=== PATIENT | male | born 1965 | race Caucasian/White ===

== ENCOUNTER 2022-03-10 08:01 | Outpatient (CLI) | payer BC, SELFPAY ==
--- NOTE | ~2022-03-10 | CT_ITS ---
EXAMINATION:CT lung screening DATE: 03/10/2022 08:21 INDICATION: Personal history of tobacco use. Smoker who quit 13 years ago with 30 pack year history. TECHNIQUE: Computed tomography (CT) of the chest was performed without intravenous contrast. Automate d exposure control and iterative reconstruction technique were employed. The dose-length product (DLP ) was 169.65 mGy-cm. COMPARISON: None. FINDINGS: A calcified right lung nodule and calcified right hilar and mediastinal lymph nodes are con sistent with old granulomatous disease. No pleural effusion. The heart size is normal. There are megan nary artery calcifications. No pericardial effusion. There is diffuse hepatic steatosis. Calcificatio ns in the liver and spleen are consistent with old granulomatous disease. There are bridging endplate osteophytes at multiple levels in the spine, consistent with diffuse idiopathic skeletal hyperostosi s (DISH). IMPRESSION: 1. Lung-RADS category 1: Negative. Continue annual screening with noncontrast low-dose chest CT in 12 months. Reviewed, dictated and finalized at location A. O VISUAL PROJECT MANAGER IMPRESSION: 1. Lung-RADS category 1: Negative. Continue annual screening with noncontrast l ow-dose chest CT in 12 months.
== END 2022-03-10 08:02 | disposition home or self-care (01) ==
PROVIDERS: PCP Family Medicine; Visit Provider Physician Assistant
DX: Z12.2 Encounter for screening for malignant neoplasm of respiratory organs (principal); Z87.891 Personal history of nicotine dependence
CPT/HCPCS: 71271

== ENCOUNTER 2022-03-12 02:36 | Day surgery (SDC) | payer BC, SELFPAY ==
[2022-02-25 11:06] VITALS: BMI 31.6
[2022-03-12 08:33] VITALS: BP 123/87; PULSE 79; RESP 18; TEMP 36.4; O2SAT 99
[2022-03-12] MEDS: LACTATED RINGERS 1,000 ML 150 ML IV CONT (08:38)
--- NOTE | 2022-03-12 08:49 | WPDANESEPPF ---
Anes - Initial Pre Proc Eval Procedure: Operation Date: 03/12/22 10:00 Proposed Procedures p Screening Colonoscopy - Rafa Anne MD Date/Time: 03/12/22 08:49 Surgeon: Rafa Anne MD Pre Op Diagnosis: neoplasm screening Patient Data Age: 56 Gender: M Height: 1.78 m Weight: 96.1 kg Last Vital Signs Temp 97.5 F L 03/12/22 08:33 Pulse 79 03/12/22 08:33 Resp 18 03/12/22 08:33 BP 123/87 03/12/22 08:33 Pulse Ox 99 03/12/22 08:33 O2 Del Method Room Air 03/12/22 08:33 Allergies Allergy/AdvReac Type Severity Reaction Status Date / Time No Known Allergies Allergy Verified 03/12/22 08:31 Home Medications Medication Instructions Recorded Confirmed Type albuterol sulfate 90 mcg/actuation 1 puff inhalation DAILY PRN 01/26/19 03/12/22 History aerosol inhaler Wheezing fluticasone propionate 50 1 spray intranasal DAILY 01/26/19 03/12/22 History mcg/actuation nasal spray,suspension (Flonase Allergy Relief) ketoconazole 2 % topical cream 1 applic topical .twice a week #60 03/15/19 03/12/22 Rx grams sildenafil 100 mg tablet 100 mg PO DAILY #30 tabs 03/15/19 03/12/22 Rx allopurinol 300 mg tablet 300 mg PO DAILY 03/03/22 03/12/22 History Patient hx anesthesia problems: none Family hx anesthesia problems: none Results Review: All pre-operative results and documents have been reviewed as part of the pre-operative evaluation. [facility] Past Medical History Medical History Chronic insomnia Erectile dysfunction Exertional asthma History of nasal polyp Impotence Mixed hyperlipidemia Seborrhea capitis in adult Surgical History Surgical History H/O rhinoplasty Social History Social History Smoking packs per day: 2 Smoking cigarettes per day: 40.0 Years smoked: 25 Smoking pack-years: 50.00 Smoking status: Former smoker Tobacco type: cigarettes Second hand tobacco smoke exposure: No Smoking end date: 03/08/09 Alcohol intake: never Substance use: never Substance use type: does not use Living arrangements: with family Gender identity (if verbalized by the patient): Male Anes - Eval Final PreProcedure Day of Procedure 03/12/22 08:49 Patient weight: normal Heart: regular rate and rhythm Lungs: clear to auscultation Airway: Mallampati scale class II Neurological: alert and oriented Last oral intake: >/= 8 hours ASA classification: II Emergent: no Anesthetic plan: proceed Anesthesia type and monitoring: general GIVS and standard monitoring Results Review: All pre-operative results and documents have been reviewed as part of the pre-operative evaluation. Informed Consent: The patient's anesthetic plan and its attendant risks and benefits were discussed with the patient/family/POA. Questions were solicited and answers provided to the satisfaction of the patient/family/POA.
--- NOTE | 2022-03-12 09:20 | PM.HPGS ---
History of Present Illness History of Present Illness Consent: Risks, benefits, and alternatives have been discussed and questions answered. Patient agrees to proceed with procedure. Chief complaint: neoplasm screening Narrative: Jhonatan Morales is a 56 year old male Presents for screening colonoscopy. Patient's current weight appetite and bowel movements are normal. He denies abdominal pain. He has had no bleeding. Patient reports previous colonoscopy 10 years ago with diminutive polyp. This was performed elsewhere. Patient states his family history is noncontributory with no known family history of colon or rectal disease. Review of Systems Review of Systems: Review of systems noncontributory. [facility] Past Medical History Medical History Chronic insomnia Erectile dysfunction Exertional asthma History of nasal polyp Impotence Mixed hyperlipidemia Seborrhea capitis in adult Surgical History Surgical History H/O rhinoplasty Social History Social History Smoking packs per day: 2 Smoking cigarettes per day: 40.0 Years smoked: 25 Smoking pack-years: 50.00 Smoking status: Former smoker Tobacco type: cigarettes Second hand tobacco smoke exposure: No Smoking end date: 03/08/09 Alcohol intake: never Substance use: never Substance use type: does not use Living arrangements: with family Gender identity (if verbalized by the patient): Male Meds Home Medications and Allergies Home Medications Medication Instructions Recorded Confirmed Type albuterol sulfate 90 mcg/actuation 1 puff inhalation DAILY PRN 01/26/19 03/12/22 History aerosol inhaler Wheezing fluticasone propionate 50 1 spray intranasal DAILY 01/26/19 03/12/22 History mcg/actuation nasal spray,suspension (Flonase Allergy Relief) ketoconazole 2 % topical cream 1 applic topical .twice a week #60 03/15/19 03/12/22 Rx grams sildenafil 100 mg tablet 100 mg PO DAILY #30 tabs 03/15/19 03/12/22 Rx allopurinol 300 mg tablet 300 mg PO DAILY 03/03/22 03/12/22 History Allergies Allergy/AdvReac Type Severity Reaction Status Date / Time No Known Allergies Allergy Verified 03/12/22 08:31 Vital Signs Vital Signs - 24 hr 03/12/22 08:33 Temperature 97.5 F L Pulse Rate 79 Respiratory Rate 18 Blood Pressure 123/87 Pulse Oximetry 99 Oxygen Delivery Room Air Exam Narrative: Physical exam reveals patient to be alert. Vital signs stable. HEENT exam is unremarkable. Patient is anicteric. Lungs are clear to auscultation and percussion. Heart is without murmur or extra sounds. Abdomen bowel sounds present soft nontender with no organomegaly. Digital external rectal exam is normal. Assessment and Plan Assessment and plan (1) Encounter for screening colonoscopy: Code(s): Z12.11 - Encounter for screening for malignant neoplasm of colon Status: Acute Assessment and Plan: Patient presents for screening colonoscopy. further recommendations may be given after endoscopy.
[2022-03-12] MEDS: SIMETHICONE ORAL SUSPENSION 20 MG/0.3 ML 30 ML BOTTLE 0.6 ML IRRIGATION (10:10)
[2022-03-12 10:21] VITALS: BP 131/94; PULSE 89; RESP 22; O2SAT 95
[2022-03-12 10:31] VITALS: BP 137/92; PULSE 83; RESP 18; O2SAT 97
[2022-03-12 10:38] VITALS: BP 138/98; PULSE 77; RESP 20; O2SAT 97
== END 2022-03-12 10:48 | disposition home or self-care (01) ==
PROVIDERS: PCP Family Medicine; Visit Provider Internal Medicine Gastroenterology
PROC: 0DJD8ZZ Inspection of Lower Intestinal Tract, Via Natural or Artificial Opening Endoscopic (ICD-10-PCS; CPT 45378; principal; 2022-03-12 10:00)
DX: Z12.11 Encounter for screening for malignant neoplasm of colon (principal); K64.8 Other hemorrhoids; E78.2 Mixed hyperlipidemia; J45.909 Unspecified asthma, uncomplicated; Z87.891 Personal history of nicotine dependence; Z79.51 Long term (current) use of inhaled steroids
CPT/HCPCS: 45378; J7120

== ENCOUNTER 2022-07-06 11:16 | Outpatient (CLI) | payer BC, SELFPAY ==
--- NOTE | ~2022-07-06 | US_ITS ---
EXAMINATION: US thyroid DATE: 07/06/2022 11:58 INDICATION: Nontoxic single thyroid nodule TECHNIQUE: Multiple ultrasound images of the thyroid were obtained. COMPARISON: CT lung screening 03/10/2022. FINDINGS: The right thyroid lobe measures 4.5 x 1.8 x 1.9 cm. The left thyroid lobe measures 4.2 x 1.8 x 2.0 c m. The isthmus measures 0.4 cm. There is heterogeneous echotexture throughout the thyroid gland. No d iscrete nodules identified, noting that heterogeneous echogenicity may reduce sensitivity of detectio n of thyroid nodules. Normal vascular flow is present. IMPRESSION: Heterogeneous thyroid gland as can be seen with Isaura thyroiditis and Graves' disease. No discret e nodule detected. Reviewed, dictated and finalized at location K. IMPRESSION: Heterogeneous thyroid gland as can be seen with Isaura thyroiditis and Grave s' disease. No discrete nodule detected.
== END 2022-07-06 11:17 | disposition home or self-care (01) ==
PROVIDERS: PCP Family Medicine; Visit Provider Physician Assistant
DX: E04.1 Nontoxic single thyroid nodule (principal)
CPT/HCPCS: 76536

== ENCOUNTER 2023-03-12 14:59 | Outpatient (CLI) | payer BC, SELFPAY ==
--- NOTE | ~2023-03-12 | CT_ITS ---
EXAMINATION:CT lung screening DATE: 03/12/2023 15:16 INDICATION: Nicotine dependence, cigarettes, uncomplicated. Smoker who quit 14 years ago with 30 pack year history. TECHNIQUE: Computed tomography (CT) of the chest was performed without intravenous contrast. Automate d exposure control and iterative reconstruction technique were employed. The dose-length product (DLP ) was 221.23 mGy-cm. COMPARISON: Chest CT 03/10/2022 FINDINGS: A calcified right lung nodule and calcified right hilar and mediastinal lymph nodes are con sistent with old granulomatous disease. No pleural effusion. The heart size is normal. There are megan nary artery calcifications. No pericardial effusion. There is diffuse hepatic steatosis. There are br idging endplate osteophytes at multiple levels in the spine, consistent with diffuse idiopathic skele anabel hyperostosis (DISH). IMPRESSION: 1. Lung-RADS category 1: Negative. Continue annual screening with noncontrast low-dose chest CT in 12 months. Reviewed, dictated and finalized at location E. RIALS MANAGEMENT MANAGER IMPRESSION: 1. Lung-RADS category 1: Negative. Continue annual screening with noncontrast l ow-dose chest CT in 12 months.
== END 2023-03-12 15:00 | disposition home or self-care (01) ==
PROVIDERS: PCP Family Medicine; Visit Provider Physician Assistant
DX: Z12.2 Encounter for screening for malignant neoplasm of respiratory organs (principal); F17.210 Nicotine dependence, cigarettes, uncomplicated
CPT/HCPCS: 71271

== ENCOUNTER → 2023-04-05 13:43 | Outpatient (CLI) | payer BC, SELFPAY ==
--- NOTE | ~2023-04-05 | CT_ITS ---
Non-contrast Head CT History: Disorientation Technique: Axial non-contrast imaging of the brain was performed. Dose reduction technique was used on this scan by utilizing automated exposure control and iterative reconstruction technique. The dose -length product (DLP) was 674.51 mGy-cm. Findings: There is an 8 mm hyperdense structure in the right parietal lobe (axial image 38). The vent ricles and subarachnoid spaces are normal in size. The calvarium appears normal. The visualized par anasal sinuses and mastoid air cells are clear. Impression: 8 mm hyperdense structure right parietal lobe. Cavernoma is a consideration versus possibly a focal s ubacute hemorrhage, or other mass. Pre and postcontrast MRI of the brain recommended to further asses s. Reviewed, dictated and finalized at location . ONAL TAX PREPARER Impression: 8 mm hyperdense structure right parietal lobe. Cavernoma is a consideration courtney joon possibly a focal subacute hemorrhage, or other mass. Pre and postcontrast M RI of the brain recommended to further assess.
== END ==
PROVIDERS: PCP Physician Assistant; Visit Provider Physician Assistant
DX: G45.9 Transient cerebral ischemic attack, unspecified (principal); R41.0 Disorientation, unspecified; R51.9 Headache, unspecified
CPT/HCPCS: 70450

== ENCOUNTER → 2023-04-16 09:18 | Outpatient (CLI) | payer BC, SELFPAY ==
--- NOTE | ~2023-04-16 | MR_ITS ---
MRI of the brain Clinical History: Confusion, headache Technique: Axial and sagittal T1-weighted images were acquired. These were followed by axial T2-weigh iam, diffusion weighted, gradient, and FLAIR images. Following intravenous administration of 20 cc Mu ltiHance gadolinium, T1-weighted fat-sat imaging was performed in the axial and coronal planes. Findings: No abnormal signal seen in the brain parenchyma. No acute infarct, intracranial hemorrhage, or mass lesion. Ventricles and some arachnoid spaces are unremarkable. Orbits are unremarkable. There is bilateral ma xillary and ethmoid sinus disease. Remaining paranasal sinuses and mastoid air cells are clear. Major intracranial flow voids are intact. Sagittal midline structures are intact. No abnormal postcontrast enhancement identified. IMPRESSION: No intracranial abnormality. Sinus disease, as above. Reviewed, dictated and finalized at [facility]. RT HOUSEKEEPER
== END ==
PROVIDERS: PCP Physician Assistant; Visit Provider Physician Assistant
DX: R93.0 Abnormal findings on diagnostic imaging of skull and head, not elsewhere classified (principal)
CPT/HCPCS: 70553; A9577

== ENCOUNTER 2023-05-04 14:43 | Outpatient (CLI) | payer BC, SELFPAY ==
--- NOTE | ~2023-05-04 | US_ITS ---
EXAMINATION: US carotid duplex BI DATE: 05/04/2023 15:24 INDICATION: Transient cerebral ischemic attack, unspecified. TECHNIQUE: Grayscale, color Doppler, and pulsed Doppler images of the cervical carotid arteries were obtained. The degree of vessel stenosis is placed in one of the following categories: normal, <50%, 5 0-69%, >=70% but less than near-occlusion, near-occlusion, or total occlusion. Note that percent sten osis relative to normal distal artery lumen diameter is indirectly measured from velocity measurement s as described by Camilo, et al. Radiology 2003; 229:340-346. COMPARISON: None. FINDINGS: RIGHT: The right common carotid artery (CCA) peak systolic velocity (PSV) is 117 cm/s. The right internal ca rotid artery (ICA) PSV is 74 cm/s. The right ICA end-diastolic velocity (EDV) is 33 cm/s. The right I CA/CCA PSV ratio is 0.6. Grayscale and color Doppler images yield an estimate of <50% diameter reduct ion from plaque in the ICA. There is antegrade flow in the right vertebral artery. LEFT: The left CCA PSV is 139 cm/s. The left ICA PSV is 72 cm/s. The left ICA EDV is 34 cm/s. The left ICA/ CCA PSV ratio is 0.5. Grayscale and color Doppler images yield an estimate of <50% diameter reduction from plaque in the ICA. There is antegrade flow in the left vertebral artery. IMPRESSION: 1. <50% stenosis in the right internal carotid artery. 2. <50% stenosis in the left internal carotid artery. Reviewed, dictated and finalized at location A. ICAL SCIENCE PROFESSOR
--- NOTE | 2023-05-04 15:10 | ECHO_ITS ---
Patient Info Name: Jhonatan Morales Age: 57 years : 1965 Gender: Male Ht: 70 in Wt: 220 lbs BSA: 2.25 m2 HR: 76 bpm BP: 147 / 99 mmHg Heart Rhythm: Sinus Rhythm Technical Quality: Good Exam Date: 05/04/2023 3:18 PM Exam Location: Echo Lab Patient Status: Outpatient Admit Date: 05/04/2023 Staff Ordering Physician: Virginia Block PA-C Anesthesiology Fellow: Katelin Madsen RDCS Attending Provider: Virginia Block PA-C Referring Physician: Mckayla AGARWAL; Exam Type: CA echo doppler color flow Study Info Indications G45.9 - Transient cerebral ischemic attack, unspecified Complete two-dimensional, color flow and Doppler transthoracic echocardiogram is performed. Summary 1. Complete two-dimensional, color flow and Doppler transthoracic echocardiogram is performed. 2. Left ventricular chamber dimension is normal. 3. Left ventricular systolic function is normal, estimated at 60-65%. 4. There is mild concentric increased left ventricular wall thickness. 5. The left ventricular diastolic function is abnormal. 6. E/e' 12 is mildly elevated. 7. There is mild aortic valve sclerosis. 8. There is trace mitral valve regurgitation. 9. No pulmonary hypertension, estimated pulmonary arterial systolic pressure is 28 mmHg. Left Ventricle E/e' 12 is mildly elevated. Left ventricular chamber dimension is normal. Left ventricular systolic function is normal, estimated at 60-65%. There is mild concentric increased left ventricular wall thickness. The left ventricular diastolic function is abnormal. Right Ventricle Right ventricular systolic function is normal and with normal TAPSE 2.1 cm. Right ventricular chamber dimension is normal. Left Atria Left atrial chamber dimension is normal. Right Atria Right atrial chamber dimension is normal. Aortic Valve The aortic valve is trileaflet. There is mild aortic valve sclerosis. There is no aortic valve stenosis. There is no aortic valve regurgitation. Pulmonic Valve There is no pulmonic regurgitation. Mitral Valve There is no mitral valve stenosis. There is trace mitral valve regurgitation. Tricuspid Valve There is no tricuspid valve regurgitation. No pulmonary hypertension, estimated pulmonary arterial systolic pressure is 28 mmHg. Pericardium/Pleural There is no pericardial effusion. Inferior Vena Cava Normal inferior vena cava with >50% collapse upon inspiration consistent with normal right atrial pressure, 5 mmHg. Aorta The aortic root size at the sinus of Valsalva is normal. Left Ventricular Outflow Tract Name Value Normal LVOT 2D LVOT Diameter 2.0 cm LVOT Doppler LVOT Peak Gradient 4 mmHg LVOT Mean Gradient 2 mmHg LVOT VTI 18 cm LVOT VTI/AV VTI Ratio 0.7 LVOT Stroke Volume 58 ml LVOT CO 3.9 l/min LVOT CI 1.7 l/min/m2 Pulmonic Valve Name Value Normal
== END 2023-05-04 14:44 | disposition home or self-care (01) ==
PROVIDERS: PCP Family Medicine; Visit Provider Physician Assistant
DX: R93.1 Abnormal findings on diagnostic imaging of heart and coronary circulation (principal); I35.8 Other nonrheumatic aortic valve disorders; I34.0 Nonrheumatic mitral (valve) insufficiency; G45.9 Transient cerebral ischemic attack, unspecified
CPT/HCPCS: 93306; 93880

== ENCOUNTER 2024-02-22 08:51 | Outpatient (CLI) | payer BC, SELFPAY ==
--- NOTE | 2024-02-22 11:00 | NEURO_ITS ---
Impression: # Complains of numbness of feet. ? # Mild asymmetrical axonal neuropathy. ? # Normal needle/EMG exam. ? # Clinical correlation recommended. Nerve Conduction Studies Anti Sensory Summary Table ?Stim Site NR Peak (ms) P-T Amp (?V) Site1 Site2 Delta-P (ms) Dist (cm) David (m/s) Left Sup Fibular Anti Sensory (Ant Lat Mall) 14 cm ? 3.9 5.1 14 cm Ant Lat Mall 3.9 16.0 41 Right Sup Fibular Anti Sensory (Ant Lat Mall) 14 cm ? 3.7 8.6 14 cm Ant Lat Mall 3.7 16.0 43 Left Sural Anti Sensory (Lat Mall) Calf ? 3.6 10.6 Calf Lat Mall 3.6 16.0 44 Right Sural Anti Sensory (Lat Mall) Calf ? 3.6 11.5 Calf Lat Mall 3.6 16.0 44 Motor Summary Table ?Stim Site NR Onset (ms) O-P Amp (mV) Site1 Site2 Delta-0 (ms) Dist (cm) David (m/s) Left Peroneal Motor (Vastus Med) Ankle ? 4.0 4.1 Popit Ankle 9.0 38.0 42 Popit ? 13.0 3.1 Right Peroneal Motor (Vastus Med) Ankle ? 3.8 4.1 Popit Ankle 8.7 40.0 46 Popit ? 12.5 2.1 Left Tibial Motor (Abd Montaño Brev) Ankle ? 3.8 7.7 Knee Ankle 9.4 41.0 44 Knee ? 13.2 4.8 Right Tibial Motor (Abd Montaño Brev) Ankle ? 4.1 3.9 Knee Ankle 8.7 41.0 47 Knee ? 12.8 2.9 F Wave Studies ?NR F-Lat (ms) L-R F-Lat (ms) Left Peroneal (Mrkrs) (EDB) ? 56.51 0.17 Right Peroneal (Mrkrs) (EDB) ? 56.35 0.17 Left Tibial (Mrkrs) (Abd Hallucis) ? 58.17 0.43 Right Tibial (Mrkrs) (Abd Hallucis) ? 57.74 0.43 EMG ?Side Muscle Nerve Root Ins Act Fibs Amp Dur Recrt Comment Right AntTibialis Dp Br Fibular L4-5 Nml Nml Nml Nml Nml Right Gastroc Tibial S1-2 Nml Nml Nml Nml Nml Right Fibularis Long Sup Br Fibular L5-S1 Nml Nml Nml Nml Nml Right Flex Dig Long Tibial L5-S2 Nml Nml Nml Nml Nml Right Ext Dig Brev Dp Br Fibular L5, S1 Nml Nml Nml Nml Nml Right QuadratusFem QuadFemoris L4-5, S1 Nml Nml Nml Nml Nml Left AntTibialis Dp Br Fibular L4-5 Nml Nml Nml Nml Nml Left Gastroc Tibial S1-2 Nml Nml Nml Nml Nml Left Fibularis Long Sup Br Fibular L5-S1 Nml Nml Nml Nml Nml Left Flex Dig Long Tibial L5-S2 Nml Nml Nml Nml Nml Left Ext Dig Brev Dp Br Fibular L5, S1 Nml Nml Nml Nml Nml Left QuadratusFem QuadFemoris L4-5, S1 Nml Nml Nml Nml Nml MTDD
== END 2024-02-22 08:52 | disposition home or self-care (01) ==
PROVIDERS: PCP Family Medicine; Visit Provider Family Medicine
DX: G62.89 Other specified polyneuropathies (principal)
CPT/HCPCS: 95886; 95910

== ENCOUNTER 2024-03-27 16:18 | Outpatient (CLI) | payer BC, SELFPAY ==
--- NOTE | ~2024-03-27 | CT_ITS ---
EXAMINATION: CT lung screening DATE: 03/27/2024 16:36 INDICATION: Z12.2 - Encounter for screening for malignant neoplasm of... TECHNIQUE: Computed tomography (CT) of the chest was performed without intravenous contrast. Addition al 3D reconstructions utilizing coronal maximum intensity projection (MIP) were performed. Automated exposure control and iterative reconstruction technique were employed. The dose-length product was 21 3.93 mGy-cm. COMPARISON: 03/12/2023 FINDINGS: No interval change in a few scattered bilateral small calcified pulmonary nodules along with calcifie d right hilar and mediastinal lymph nodes consistent with old granulomatous disease. No new or enlarg ing pulmonary nodules, pneumonia, pulmonary edema or pleural effusion. Heart size is normal. Atherosc lerotic coronary artery calcific location. No pericardial effusion. Thoracic aorta is normal in calib er. No pathologically enlarged thoracic lymphadenopathy. Mild diffuse hepatic steatosis. Tiny atheros clerotic calcification versus renal stone at the upper pole the right kidney. Mild thoracic spondylos is with bridging osteophytes at multiple levels consistent with diffuse idiopathic skeletal hyperosto sis (DISH). IMPRESSION: 1. Lung-RADS category 1: Negative. Continue annual screening with noncontrast low-dose chest CT in 12 months. Reviewed, dictated and finalized at location A. TENANCE WORKER IMPRESSION: 1. Lung-RADS category 1: Negative. Continue annual screening with noncontrast l ow-dose chest CT in 12 months.
== END 2024-03-27 16:19 | disposition home or self-care (01) ==
PROVIDERS: PCP Family Medicine; Visit Provider Physician Assistant Medical
DX: Z12.2 Encounter for screening for malignant neoplasm of respiratory organs (principal); F17.210 Nicotine dependence, cigarettes, uncomplicated
CPT/HCPCS: 71271

== ENCOUNTER 2024-09-22 06:52 | Outpatient (CLI) | payer BC, SELFPAY ==
--- OUTSIDE RECORDS SUMMARY | 2024-09-22 06:56 | XMS_ITS | Patient Health Record ---
Author Organization [facility] [employer] [place] ([address]) Address [address] [place] [address] Care Team Providers Care Audio Visual Production Specialist Name Role Phone Reece Aguiar MD Primary Care Provider Neha Painter Unavailable [phone] Allergies No Known Allergies Reason For Referral No Information Medications Medication SIG (Take, Route, Frequency, Duration) Notes Start Date End Date Status CETIRIZINE 10 mg 1 tab(s) orally once a day; Duration: 30 days Active NASAL WASHES N/A as directed intranasally as needed; Duration: 30 Active Cetirizine HCl 10 MG 1 tab(s) orally onc e a day; Duration: 30 days Active Auvi-Q 0.3 MG/0.3ML as directed intramuscularly once; Duration: 30 day(s) Active AUVI-Q 0.3 mg as directed intramuscularly once; Duration: 30 day(s) Active Pravastatin Sodium 40 MG 1 tablet Orally Once a day Active Allopurinol 300 MG 1 tab(s) orally once a day; Duration: 30 day(s) Active Fluticasone Propionate 50 MCG/ACT 2 spray(s) in each nostril once a day; Duration: 90 days Active Levothyroxine Sodium *Please rev iew and pick correct strength-formulat ion from Medispan options. If intended option is not shown, discontinue and re-order from Quick Search* Active ZyrTEC Allergy 10 MG 1 tab(s) orally onc e a day Active SIT (TRADITIONAL) variable per schedule SC per schedule; Duration: to be determined Active Social History Tobacco Use: Social History Observation Description Date Details (start date - stop date) Never Smoker NA - NA Smoking Smart Form: Question Answer Notes Are you a: never smoker Tobacco Control (Standard) Question Answer Notes Tobacco use: Nonsmoker Problems Problem Type SNOMED Code ICD Code Onset Dates Problem Status W/U Status Risk Notes Problem Chronic allergic conjunctivitis (12890220) Other chronic allergic conjunctivitis (H10.45) Active confirmed Problem Allergic rhinitis caused by pollen (disorder) (61397257) Allergic rhinitis due to pollen (J30.1) Active confirmed Problem Allergic rhinitis caused by animal hair and dander (298720106473044) Allergic rhinitis due to animal (cat) (dog) hair and dander (J30.81) Active confirmed Problem Allergic rhinitis (74484644) Other allergic rhinitis (J30.89) Active confirmed Problem Exercise induced bronchospasm (165257302) Exercise induced bronchospasm (J45.990) Active confirmed Problem Elevated blood pressure reading without diagnosis of hypertension (335173483) Elevated blood-pressure reading, without diagnosis of hypertension (R03.0) Active confirmed Problem Allergic rhinitis caused by pollen (disorder) (82022491) Allergic rhinitis due to pollen (J30.1) Active confirmed Problem Allergic rhinitis caused by animal hair and dander (735903827270247) Allergic rhinitis due to animal (cat) (dog) hair and dander (J30.81) Active confirmed Problem Allergic rhinitis (04100175) Other allergic rhinitis (J30.89) Active confirmed Problem Chronic allergic conjunctivitis (34940618) Other chronic allergic conjunctivitis (H10.45) Active confirmed Encounters Encounter Location Date Provider Diagnosis [facility] [address] [place] [address] [employer] [address] [address] 10/19/2023 Neha Aceves Allergic rhinitis du e to pollen J30.1 ; Other allergic rhinitis J30.89 and Other chronic allergic conjunctivitis H10.45 [facility] [address] [place] [address] [employer] [address] [address] 11/16/2023 Neha Aceves Allergic rhinitis du e to pollen J30.1 ; Other allergic rhinitis J30.89 and Other chronic allergic conjunctivitis H10.45 [facility] [address] [place] [address] [employer] [address] [address] 12/14/2023 Neha Ketan Allergic rhinitis du e to pollen J30.1 ; Other allergic rhinitis J30.89 and Other chronic allergic conjunctivitis H10.45 [facility] [address] [place], [place] [address] [address] [address] 01/11/2024 Neha Ketan Allergic rhinitis du e to pollen J30.1 ; Other allergic rhinitis J30.89 and Other chronic allergic conjunctivitis H10.45 [facility] [address] [place], [place] [address] [address] [address] 02/08/2024 Neha Ketan Allergic rhinitis du e to pollen J30.1 ; Other allergic rhinitis J30.89 and Other chronic allergic conjunctivitis H10.45 [facility] [address] [place] [address] [employer] [address] [address] 03/09/2024 Neha Ketan Allergic rhinitis du e to pollen J30.1 ; Other allergic rhinitis J30.89 and Other chronic allergic conjunctivitis H10.45 [facility] [address] [place] [address] [employer] [address] [address] 04/06/2024 Neha Ketan Allergic rhinitis du e to pollen J30.1 ; Other allergic rhinitis J30.89 and Other chronic allergic conjunctivitis H10.45 [facility] [address] [place] [address] [employer] [address] [address] 06/01/2024 Neha Ketan Allergic rhinitis du e to pollen J30.1 ; Other allergic rhinitis J30.89 and Other chronic allergic conjunctivitis H10.45 [facility] [address] [place] [address] [employer] [address] [address] 06/05/2024 Neha Ketan Allergic rhinitis du e to pollen J30.1 ; Other allergic rhinitis J30.89 and Other chronic allergic conjunctivitis H10.45 [facility] [address] [place], [place] [address] [address] [address] 06/08/2024 Neha Ketan Allergic rhinitis du e to pollen J30.1 ; Other allergic rhinitis J30.89 and Other chronic allergic conjunctivitis H10.45 [facility] [address] [place], [place] [address] [address] [place] [address] 07/11/2024 Neha Aceves Allergic rhinitis du e to pollen J30.1 ; Other allergic rhinitis J30.89 and Other chronic allergic conjunctivitis H10.45 [facility] [address] [place] [address] 08/08/2024 Neha Aceves Allergic rhinitis du e to pollen J30.1 ; Other allergic rhinitis J30.89 and Other chronic allergic conjunctivitis H10.[address] [address] 09/05/2024 Neha Aceves Allergic rhinitis du e to pollen J30.1 ; Other allergic rhinitis J30.89 and Other chronic allergic conjunctivitis H10.45 Assessments Encounter Date Diagnosis (ICD Code) Assessment Notes Treatment Notes Treatment Clinical Notes Section Notes 10/19/2023 Allergic rhinitis due to pollen (ICD-10 - J30.1) 10/19/2023 Other allergic rhinitis (ICD-10 - J30.89) 11/16/2023 Allergic rhinitis due to pollen (ICD-10 - J30.1) 11/16/2023 Other allergic rhinitis (ICD-10 - J30.89) 12/14/2023 Allergic rhinitis due to pollen (ICD-10 - J30.1) 12/14/2023 Other allergic rhinitis (ICD-10 - J30.89) 01/11/2024 Allergic rhinitis due to pollen (ICD-10 - J30.1) 01/11/2024 Other allergic rhinitis (ICD-10 - J30.89) 02/08/2024 Allergic rhinitis due to pollen (ICD-10 - J30.1) 02/08/2024 Other allergic rhinitis (ICD-10 - J30.89) 03/09/2024 Allergic rhinitis due to pollen (ICD-10 - J30.1) 03/09/2024 Other allergic rhinitis (ICD-10 - J30.89) 04/06/2024 Allergic rhinitis due to pollen (ICD-10 - J30.1) 04/06/2024 Other allergic rhinitis (ICD-10 - J30.89) 06/01/2024 Allergic rhinitis due to pollen (ICD-10 - J30.1) 06/01/2024 Other allergic rhinitis (ICD-10 - J30.89) 06/05/2024 Allergic rhinitis due to pollen (ICD-10 - J30.1) 06/05/2024 Other allergic rhinitis (ICD-10 - J30.89) 06/08/2024 Allergic rhinitis due to pollen (ICD-10 - J30.1) 06/08/2024 Other allergic rhinitis (ICD-10 - J30.89) 07/11/2024 Allergic rhinitis due to pollen (ICD-10 - J30.1) 07/11/2024 Other allergic rhinitis (ICD-10 - J30.89) 08/08/2024 Allergic rhinitis due to pollen (ICD-10 - J30.1) 08/08/2024 Other allergic rhinitis (ICD-10 - J30.89) 09/05/2024 Allergic rhinitis due to pollen (ICD-10 - J30.1) 09/05/2024 Other allergic rhinitis (ICD-10 - J30.89) 09/05/2024 Other chronic allergic conjunctivitis (ICD-10 - H10.45) 08/08/2024 Other chronic allergic conjunctivitis (ICD-10 - H10.45) 07/11/2024 Other chronic allergic conjunctivitis (ICD-10 - H10.45) 06/08/2024 Other chronic allergic conjunctivitis (ICD-10 - H10.45) 06/05/2024 Other chronic allergic conjunctivitis (ICD-10 - H10.45) 06/01/2024 Other chronic allergic conjunctivitis (ICD-10 - H10.45) 04/06/2024 Other chronic allergic conjunctivitis (ICD-10 - H10.45) 03/09/2024 Other chronic allergic conjunctivitis (ICD-10 - H10.45) 02/08/2024 Other chronic allergic conjunctivitis (ICD-10 - H10.45) 01/11/2024 Other chronic allergic conjunctivitis (ICD-10 - H10.45) 12/14/2023 Other chronic allergic conjunctivitis (ICD-10 - H10.45) 11/16/2023 Other chronic allergic conjunctivitis (ICD-10 - H10.45) 10/19/2023 Other chronic allergic conjunctivitis (ICD-10 - H10.45) Plan Of Treatment Next Appt Details Provider Name:Neha parker, 10/03/2024 10:30:00 AM, [address] [facility], [address], [place], [address], Insurance Providers Payer Name Payer Address Payer Phone Subscriber Number Group Number Insured Name Patient Relationship to Insured Coverage Start Date Coverage End Date [facility] [address] [place] [address] [id number] Linda Morales Spouse - patient is the spouse of the insured Medical (General) History Medical History History ICD Code 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
[2024-09-22 09:00] LABS: Glucose 1 Hour 206 mg/dL
[2024-09-22 09:02] LABS: Vitamin B12 911.0 pg/mL (239-931)
[2024-09-22 10:31] LABS: Glucose 2 Hour 206 mg/dL
[2024-09-26 10:08] LABS: ANA by IFA Rfx Titer/Pattern Negative (.)
[2024-09-26 14:09] LABS: Immunoglobulin A, Qn 371 mg/dL (90-386); Immunoglobulin G, Qn 1293 mg/dL (603-1613); Immunoglobulin M, Qn 36 mg/dL (20-172)
[2024-09-27 13:08] LABS: Vit. B1, Whole Blood 120.3 nmol/L (66.5-200.0)
== END 2024-09-22 06:53 | disposition home or self-care (01) ==
LOC: ANHLAB 06:54
PROVIDERS: PCP Family Medicine; Visit Provider Psychiatry & Neurology Neurology
DX: Z13.1 Encounter for screening for diabetes mellitus (principal); G62.9 Polyneuropathy, unspecified
CPT/HCPCS: 36415; 82607; 82746; 82784; 82951; 83090; 84207; 84425; 86038; 86334